=== PATIENT | female | born 1945 | race Two or more races ===

== ENCOUNTER 2023-08-13 16:50 | Emergency (ER) | payer OTHER ==
[~2023-08-13] VITALS: Ht 167.6 cm; Wt 94.3 kg
[2023-08-13] MEDS ORDERED: COZAAR100 MG PO (17:08)
[2023-08-13] MEDS ORDERED: ZOVIRAX200 MG PO (17:09)
[2023-08-13] MEDS ORDERED: MORPHINE SULFATE 2 MG/ML CARTRIDGE IV STA (18:18)
[2023-08-13] MEDS ORDERED: TRAM1TAB98 PO (19:03)
== END 2023-08-13 19:31 | disposition home or self-care (01) ==
LOC: ER 16:51
DX: B02.8 Zoster with other complications (principal)
CPT/HCPCS: 96365; 99282; J2270